=== PATIENT | female | born 2005 | race Hispanic/Latino ===

== ENCOUNTER 2024-09-28 16:07 | Emergency (ER) | payer OTHER ==
[2024-09-28] MEDS ORDERED: Lidocaine 1%/Epinephrine 1:100K 10 ML VIAL ONE (16:46)
[2024-09-28] MEDS ORDERED: Acetaminophen 500 MG TAB ONE (17:09)
[2024-09-28] MEDS ORDERED: Bacitracin 1 PK ONE (17:21)
== END 2024-09-28 17:30 | disposition home or self-care (01) ==
LOC: BURERS 16:07
DX: S01.01XA Laceration without foreign body of scalp, initial encounter (principal); S80.01XA Contusion of right knee, initial encounter; V89.2XXA Person injured in unspecified motor-vehicle accident, traffic, initial encounter
CPT/HCPCS: 12002; 70450; 72125; G0390